=== PATIENT | male | born 1965 | race African-American/Black ===

== ENCOUNTER 2018-09-07 11:26 | Emergency (ER) | payer OTHER ==
[~2018-09-07] VITALS: Ht 167.6 cm; Wt 110.0 kg
[2018-09-07 12:27] LABS: BASOPHILS % 1.1 % (0.0-2.0); HEMOGLOBIN. 13.5 g/dL (14.0-18.0); LYMPHOCYTES % 19.4 % (20.0-50.0); MEAN CORPUSCULAR HEMOGLOBIN 30.7 pg (28.0-32.0); MEAN CORPUSCULAR VOLUME 93.2 fL (80.0-94.0); MEAN PLATELET VOLUME 10.1 fl (7.4-10.4); MONOCYTES % 6.4 % (2.0-8.0); NEUTROPHILS % 72.1 % (40.0-76.0); PLATELET 174 x1000/uL (130-400); RED CELL DISTRIBUTION WIDTH 17.1 % (11.6-14.6)
[2018-09-07 12:39] LABS: BG BASE EXCESS 2.9 mmol/L (-2.0-2.0); BG BILEVEL POS AIRWAY PRESSURE 15/5; BG CARBOXYHEMOGLOBIN 1.3 % (0.5-1.5); BG FRACTION INSPIRED OXYGEN 40; BG HCO3 ACT 29.6 mmol/L (22.0-26.0); BG OXYHEMOGLOBIN 95.7 % (94.0-97.0); BG PCO2 53.8 mmHg (35.0-45.0); BG PH 7.358 (7.350-7.450); BG PO2 96.8 mmHg (75.0-100.0); BG SAMPLE SITE RIGHT RADIAL; BG TOTAL HEMOGLOBIN 14.2 g/dL (12.0-18.0); BG VENT MODE MASK - BIPAP; BG VENT RATE 14 set
[2018-09-07 12:40] LABS: CHLORIDE 107 mEq/L (98-107)
[2018-09-07] MEDS ORDERED: FUROSEMIDE 40MG/4ML VIAL IVP ONE (13:00)
[2018-09-07] MEDS ORDERED: NITROGLYCERIN OINT 1GM/INCH UDPKT TD ONE ×2 (13:15→15:30)
[2018-09-07] MEDS ORDERED: ASPIRIN 81MG TABLET PO ONE (13:30)
[2018-09-07] MEDS ORDERED: HYDRALAZINE 20MG/ML VIAL IV ONE (13:45)
[2018-09-07] MEDS ORDERED: NITROGLYCERIN 0.4MG TABLET SL SL ONE (15:30)
[2018-09-07 16:36] VITALS: BP 181/110
== END 2018-09-07 17:05 | disposition short-term general hospital (02) ==
LOC: ER 11:44 → EDBEDREQ 12:54 → EDBEDREQSVC 12:54 → CANBEDREQ 16:44 → ER 17:05
DX: I11.0 Hypertensive heart disease with heart failure (principal); I50.9 Heart failure, unspecified; E11.9 Type 2 diabetes mellitus without complications; E78.00 Pure hypercholesterolemia, unspecified; D86.9 Sarcoidosis, unspecified
CPT/HCPCS: 36415; 36600; 71045; 80053; 82375; 82805; 83605; 83880; 84484; 85025; 85610; 93005; 94660; 96374; 96375; 99285; J0360; J1940

== ENCOUNTER 2020-02-08 14:46 | Inpatient (IN) | payer OTHER ==
[~2020-02-08] VITALS: Ht 170.2 cm; Wt 119.7 kg
[2020-02-08] MEDS ORDERED: LABETALOL HCL 20MG/4ML CARPUJECT IV ONE (15:15)
[2020-02-08] MEDS ORDERED: LABETALOL 5MG/ML SYR 20 MG/4 ML SYRINGE IV SCH (15:30)
[2020-02-08 16:39] LABS: BASOPHILS % 0.4 % (0.0-2.0); CHLORIDE 103 mEq/L (98-107); EOSINOPHILS % 1.4 % (0.0-5.0); HEMATOCRIT. 42.9 % (42.0-52.0); HEMOGLOBIN. 14.3 g/dL (14.0-18.0); LYMPHOCYTES % 12.1 % (20.0-50.0); MEAN CORPUSCULAR HEMOGLOBIN 30.2 pg (28.0-32.0); MEAN CORPUSCULAR VOLUME 90.5 fL (80.0-94.0); MEAN PLATELET VOLUME 9.4 fl (7.4-10.4); MONOCYTES % 7.6 % (2.0-8.0); NEUTROPHILS % 78.5 % (40.0-76.0); PLATELET 196 x1000/uL (130-400); RED BLOOD CELL COUNT 4.74 mill/uL (4.7-6.1); RED CELL DISTRIBUTION WIDTH 15.5 % (11.6-14.6)
[2020-02-08] MEDS ORDERED: ASPIRIN 325MG TABLET PO ONE (19:45)
[2020-02-08] MEDS ORDERED: NITROGLYCERIN 0.4MG TABLET SL SL ONE (20:30)
[2020-02-08] MEDS ORDERED: MORPHINE SULFATE 4 MG/ML CPJ (NOT FOR IM USE) IV ONE (20:30)
[2020-02-08] MEDS ORDERED: NITROGLYCERIN 0.1MG/HR PATCH TOP ONE (21:45)
[2020-02-08] MEDS ORDERED: ONDANSETRON HCL 4MG/2ML INJ IV PRN (23:15)
[2020-02-08] MEDS ORDERED: ACETAMINOPHEN 325MG TABLET PO PRN (23:15)
[2020-02-08] MEDS ORDERED: MORPHINE SULFATE 2 MG/ML CPJ (NOT FOR IM USE) IV PRN (23:15)
[2020-02-08] MEDS ORDERED: GUAIFENESIN 200MG/10ML SUGAR FREE UDC PO PRN (23:15)
[2020-02-08] MEDS ORDERED: MAGNESIUM/ALUMINUM HYDROXIDE/SIMETHICONE 30ML UDC PO PRN (23:15)
[2020-02-08] MEDS ORDERED: CLONIDINE 0.1MG TABLET PO PRN (23:15)
[2020-02-08] MEDS ORDERED: DOCUSATE SODIUM 100MG CAPSULE PO PRN (23:15)
[2020-02-08] MEDS ORDERED: HYDROCODONE/ACETAMINOPHEN 5/325MG TABLET PO PRN (23:15)
[2020-02-09] VITALS (7 sets, daily range): BP systolic 119–188; BP diastolic 65–120
[2020-02-09] MEDS ORDERED: SPIR25TA6 PO (01:54)
[2020-02-09] MEDS ORDERED: LOSA100T32 PO (01:54)
[2020-02-09] MEDS ORDERED: METH2.5T PO (01:54)
[2020-02-09] MEDS ORDERED: BISO5TAB13 PO (01:54)
[2020-02-09] MEDS ORDERED: HYDR200T35 PO (01:54)
[2020-02-09] MEDS ORDERED: CETI10TA10 MT (01:54)
[2020-02-09] MEDS ORDERED: BENZ100C86 PO (01:54)
[2020-02-09] MEDS ORDERED: METF-816 PO (01:54)
[2020-02-09] MEDS ORDERED: PRED10TA PO (01:54)
[2020-02-09] MEDS ORDERED: TAMS-11 PO (01:54)
[2020-02-09] MEDS ORDERED: FURO40TA5 PO (01:54)
[2020-02-09] MEDS ORDERED: ATOR20TA65 PO (01:55)
[2020-02-09] MEDS ORDERED: HYDRALAZINE 20MG/ML VIAL IV PRN (05:45)
[2020-02-09 06:47] LABS: BASOPHILS % 0.3 % (0.0-2.0); EOSINOPHILS % 2.2 % (0.0-5.0); HEMATOCRIT. 38.4 % (42.0-52.0); HEMOGLOBIN. 12.8 g/dL (14.0-18.0); LYMPHOCYTES % 9.9 % (20.0-50.0); MEAN CORPUSCULAR HEMOGLOBIN 29.9 pg (28.0-32.0); MEAN CORPUSCULAR VOLUME 89.8 fL (80.0-94.0); MEAN PLATELET VOLUME 9.7 fl (7.4-10.4); NEUTROPHILS % 75.6 % (40.0-76.0); PLATELET 178 x1000/uL (130-400); RED BLOOD CELL COUNT 4.27 mill/uL (4.7-6.1); RED CELL DISTRIBUTION WIDTH 14.8 % (11.6-14.6)
[2020-02-09 08:20] LABS: CHLORIDE 104 mEq/L (98-107)
[2020-02-09 08:33] LABS: LDL CHOLESTEROL 87 mg/dL (5-100)
[2020-02-09 08:34] LABS: CREATINE KINASE 289 IU/L (39-308); HDL CHOLESTEROL 45 mg/dL (40-59)
[2020-02-09 08:37] LABS: CREATINE KINASE MB FRACTION 1.4 ng/mL (0.5-3.6)
[2020-02-09] MEDS: ENOXAPARIN 30MG/0.3ML SYR SUBCUT SCH ×2 (08:50→21:58)
[2020-02-09] MEDS: METOPROLOL TARTRATE 25MG TABLET PO SCH ×2 (08:50→21:58)
[2020-02-09] MEDS ORDERED: INFLUENZA VACCINE 05/PF 0.5 ML VIAL IM ONE (12:00)
[2020-02-09 16:04] LABS: CREATINE KINASE 309 IU/L (39-308)
[2020-02-09 16:07] LABS: CREATINE KINASE MB FRACTION 2.2 ng/mL (0.5-3.6)
[2020-02-10] VITALS: BP 132/76
[2020-02-10 04:00] VITALS: BP 135/66
[2020-02-10 08:00] VITALS: BP 164/106
[2020-02-10] MEDS: METOPROLOL TARTRATE 25MG TABLET PO SCH (08:19)
[2020-02-10] MEDS: ENOXAPARIN 30MG/0.3ML SYR SUBCUT SCH (08:19)
[2020-02-10 12:00] VITALS: BP 152/80
== END 2020-02-10 13:15 | disposition left against medical advice (07) | DRG 311 ==
LOC: ER 14:46 → EDBEDREQ 22:03 → ENRESERV 23:42 → 8WST 02-09 00:25
PROVIDERS: ADMIT Hospitalist; ATTEND Hospitalist
DX: I24.9 Acute ischemic heart disease, unspecified (principal); I50.43 Acute on chronic combined systolic (congestive) and diastolic (congestive) heart failure; I16.1 Hypertensive emergency; Z68.41 Body mass index [BMI] 40.0-44.9, adult; I11.0 Hypertensive heart disease with heart failure; D72.829 Elevated white blood cell count, unspecified; E11.9 Type 2 diabetes mellitus without complications; E66.9 Obesity, unspecified; E78.00 Pure hypercholesterolemia, unspecified; E78.5 Hyperlipidemia, unspecified; I10 Essential (primary) hypertension; I16.0 Hypertensive urgency; Z20.828 Contact with and (suspected) exposure to other viral communicable diseases; Z79.899 Other long term (current) drug therapy
CPT/HCPCS: 36415; 71045; 80053; 80061; 82550; 82553; 82962; 83880; 84484; 85025; 87426; 90686; 93005; 93306; 93970; 96374; 99285; J1650; J2270; J3490